=== PATIENT | male | born 1975 | race Caucasian/White ===

== ENCOUNTER 2025-06-08 10:08 | Emergency (ER) | payer OTHER ==
[~2025-06-08] VITALS: Ht 175.3 cm; Wt 110.0 kg
[2025-06-08 10:10] VITALS: TEMP 98.2
[2025-06-08 11:19] LABS: PLATELET COUNT (AUTO) 288 K/uL (150-450); RED BLOOD CELL COUNT(AUTO) 5.09 MIL/uL (4.50-5.90); RED CELL DISTRIBUTION WIDTH 13.0 % (11.5-14.5); WHITE BLOOD COUNT (AUTO) 10.7 K/uL (4.5-11.0)
[2025-06-08 11:37] LABS: CALCIUM, TOTAL 9.0 mg/dL (8.8-10.5); CREATININE 0.94 mg/dL (0.60-1.30); GLOMERULAR FILTR. RATE CALC > 60 mL/min (>60); GLUCOSE,RANDOM 230 mg/dL (70-110); SODIUM SERUM 134 mmol/L (136-145); UREA NITROGEN, BLOOD 14 mg/dL (7-18)
[2025-06-08 11:49] LABS: ASPARTATE AMINOTRANSFERASE 29 U/L (15-37); TOTAL PROTEIN, SERUM 8.1 g/dL (6.4-8.2)
[2025-06-08 12:35] LABS: APPEARANCE,URINE CLEAR (CLEAR); GLUCOSE, URINE (UA) NEGATIVE (NEGATIVE); LEUKOCYTE ESTERASE ,URINE NEGATIVE (NEGATIVE); NITRATE,URINE NEGATIVE (NEGATIVE); OCCULT BLOOD,URINE NEGATIVE (NEGATIVE); SPECIFIC GRAVITIY, URINE 1.005 (1.003-1.030)
[2025-06-08] MEDS ORDERED: SITA100 PO (13:22)
[2025-06-08] MEDS ORDERED: TELM1TAB86 PO (13:22)
[2025-06-08] MEDS ORDERED: METF-1211 PO (13:22)
[2025-06-08] MEDS ORDERED: PHEN50TA13 PO (13:22)
[2025-06-08] MEDS ORDERED: PHEN100C74 PO (14:02)
[2025-06-08 14:16] VITALS: BP 145/90; PULSE 90; RESP 16; O2SAT 96
== END 2025-06-08 14:17 ==
LOC: EMS 10:14
DX: E11.65 Type 2 diabetes mellitus with hyperglycemia (principal); I10 Essential (primary) hypertension; Z98.890 Other specified postprocedural states; Z86.79 Personal history of other diseases of the circulatory system; Z86.73 Personal history of transient ischemic attack (TIA), and cerebral infarction without residual deficits; Z79.899 Other long term (current) drug therapy; Z76.0 Encounter for issue of repeat prescription
CPT/HCPCS: 80053; 81003; 82962; 85025; 99283